=== PATIENT | female | born 1980 | race Caucasian/White ===

== ENCOUNTER 2023-02-15 11:10 | Day surgery (SDC) | payer MEDICAID, SELFPAY ==
[2023-02-14 15:46] VITALS: BMI 23.8
[2023-02-15] VITALS (10 sets, daily range): BP systolic 90–129; BP diastolic 41–78; PULSE 47–74; RESP 12–19; TEMP 36.1–36.8; O2SAT 96–100
[2023-02-15 11:53] LABS: OR HCG Qualitative Urine Negative (Negative)
[2023-02-15] MEDS: sodium chloride 0.9% 1,000 ML 30 ML IV (12:03)
--- NOTE | 2023-02-15 12:05 | W.PM.OPSUD ---
Surgery/Procedure H&P Update DATE OF PROCEDURE: February 15, 2023 DATE H&P PERFORMED: 02/15/23 H&P UPDATE INFORMATION: I have reviewed H&P completed within last 30 days, I have examined patient prior to procedure and No changes to prior documentation PREOP DIAGNOSIS: severe cervical dysplasia PLANNED PROCEDURE: Operation Date: 02/15/23 12:55 Proposed Procedures p [LEEP cervical excision 90345], D06.9(Not Applicable) - Michael Ventura MD
--- NOTE | 2023-02-15 12:05 | W.PM.OPSFHP ---
Same Day Surgery H&P Indication for Procedure/HPI DATE OF PROCEDURE: February 15, 2023 CHIEF COMPLAINT/INDICATIONFOR SURGICAL PROCEDURE: severe cervical dysplasia PREOP DIAGNOSIS: severe cervical dysplasia PLANNED PROCEDURE: Operation Date: 02/15/23 12:55 Proposed Procedures p [LEEP cervical excision [id number]], D06.9(Not Applicable) - Michael Ventura MD 42 y.o. with colposcopically-directed cervical biopsy showing severe cervical dysplasia, now scheduled for electrosurgical loop excision of the cervix Medications/Allergies* Home Medications Medication Instructions Recorded Confirmed Type No Known Home Medications 02/14/23 02/14/23 History Allergies/Adverse Reactions Allergy/AdvReac Type Severity Reaction Status Date / Time No Known Allergies Allergy Verified 02/15/23 11:40 Current Medications: Generic Name Dose Route Start Last Admin Trade Name Freq PRN Reason Stop Dose Admin Sodium Chloride 1,000 mls @ 30 mls/hr 02/15/23 11:45 02/15/23 12:03 Sodium Chloride 0.9% IV 02/16/23 11:44 30 mls/hr .Q24H HITESH Administration Pertinent History/Comorbid Conditions* Family History (Updated 01/23/23 @ 08:32 by Camryn Hurtado) Denies family history of Diabetes CAD (coronary artery disease) Chronic kidney disease (CKD) Lung disease Cancer Hypertension Stroke Pertinent Exam Findings alert, oriented x 3, clear to auscultation bilaterally and regular rate & rhythm Recommendations Surgery/Procedure today Coding Level of Care Code Acute Code for Chg Fwd Diagnoses Time Spent (min) 15
--- NOTE | 2023-02-15 12:28 | ANES.PREANE2 ---
Pre-Anesthetic Assessment Height/Weight: Height 1.57 m Weight 58.967 kg Temp Pulse Resp BP Pulse Ox O2 Del Method 98.2 F 74 18 113/73 100 Room Air 02/15/23 12:04 02/15/23 12:04 02/15/23 12:04 02/15/23 12:04 02/15/23 12:04 02/15/23 12:04 Preop Diagnosis: severe cervical dysplasia Operation Date: 02/15/23 12:55 Proposed Procedures p [LEEP cervical excision 52621], D06.9(Not Applicable) - Michael Ventura MD Familial anesthetic complications: none Was Beta Tamika taken within 24 hours: N/A Was Clonidine taken within 24 hours: N/A Last intake: Intake Last Liquid Date 02/15/23 Last Liquid Time 09:30 Last Solid Date 02/14/23 Last Solid Time 18:00 Social No alcohol and No tobacco Exam alert, oriented x 3, clear to auscultation bilaterally and regular rate & rhythm Airway Submandibular: within normal limits Cervical ROM: within normal limits Mallampati: Class II Dentition: full History/ROS No significant history except as noted Anesthetic Plan ASA status: 1 Anesthesia: General Medications/Allergies Home Medications Medication Instructions Recorded Confirmed Last Taken Type No Known Home Medications 02/14/23 02/14/23 Unknown History Allergies Allergy/AdvReac Type Severity Reaction Status Date / Time No Known Allergies Allergy Verified 02/15/23 11:40 Current Medications Generic Name Dose Route Start Last Admin Trade Name Freq PRN Reason Stop Dose Admin Sodium Chloride 1,000 mls @ 30 mls/hr 02/15/23 11:45 02/15/23 12:03 Sodium Chloride 0.9% IV 02/16/23 11:44 30 mls/hr .Q24H HITESH Administration PFSH Anesthesia Family History (Updated 01/23/23 @ 08:32 by Camryn Hurtado) Denies family history of Diabetes CAD (coronary artery disease) Chronic kidney disease (CKD) Lung disease Cancer Hypertension Stroke Female Reproductive History Date of last menstrual period: 02/13/23 Data Anesthesia Cardiac Studies: No Data to Display
[2023-02-15] MEDS: vasopressin 20 unit/mL INJ INJECTION (14:04)
--- NOTE | 2023-02-15 15:44 | ANE.PACU2 ---
Inpatient post-anesthesia follow up: Airway intact: Yes Vital signs: Temperature 97.1 F Pulse Rate 61 Respiratory Rate 18 Blood Pressure 120/64 Pulse Oximetry 100 Oxygen Delivery Me thod Room Air Oxygen Flow Rate 6 Fraction of Inspir ed Oxygen Hydration adequate: Yes Nausea and vomiting: No Pain level: 3 Mental status: Baseline
--- NOTE | 2023-02-15 21:44 | PM.OP ---
Operative Report Date of procedure: February 15, 2023 Pre-op diagnosis: Preop Diagnosis severe cervical dysplasia Post-op diagnosis: same Procedure done: Electrosurgical loop excision of the cervix Specimens removed/disposition: cervical excision Surgeon: Michael Ventura MD Anesthesia: MAC Estimated blood loss (mL): 5 Complications: none Condition: stable Disposition: PACU Brief History: 42 y.o. with severe cervical dysplasia on colposcopically-directed cervical biopsy Procedure: Informed consent signed The patient was taken to the operating room and placed supine on the table. MAC anesthesia was induced. The patient was placed in dorsolithotomy position. The patient was prepped and draped in the usual sterile fashion. A bivalve speculum was placed in the vagina. The anterior lip of the cervix was grasped with a single toothed tenaculum. The cervix was then infiltrated at the cervicovaginal junction with 20 U of vasopressin to decrease bleeding. Electrosurgical loop excision of the cervix was done to a depth of approximately 5 mm. Bleeding from the posterior cervix was controlled with one stitch of 2-O chromic. Excellent hemostasis was noted. All instruments were then removed. The patient was placed supine, awakened, and taken to the recovery room. Postoperative condition: stable EBL: less than 5 cc Complications: none Sponge and instrument counts were correct x two
== END 2023-02-15 15:53 | disposition home or self-care (01) ==
PROVIDERS: Anesthesiology; PCP Internal Medicine; Visit Provider Obstetrics & Gynecology
PROC: 0UBC7ZZ Excision of Cervix, Via Natural or Artificial Opening (ICD-10-PCS; CPT 57522; principal; 2023-02-15 12:45)
DX: R87.613 High grade squamous intraepithelial lesion on cytologic smear of cervix (HGSIL) (principal); I12.9 Hypertensive chronic kidney disease with stage 1 through stage 4 chronic kidney disease, or unspecified chronic kidney disease; N18.9 Chronic kidney disease, unspecified; E11.22 Type 2 diabetes mellitus with diabetic chronic kidney disease; I25.10 Atherosclerotic heart disease of native coronary artery without angina pectoris; Z86.73 Personal history of transient ischemic attack (TIA), and cerebral infarction without residual deficits
CPT/HCPCS: 57522; 81025; 84703; 88307; J1100; J1885; J2250; J2405; J2704; J3010; J3490; J7030